=== PATIENT | female | born 1955 | race Caucasian/White ===

== ENCOUNTER 2018-01-17 17:17 | Inpatient (IN) | payer OTHER ==
[2018-01-17] MEDS ORDERED: NS 1,000 ML IV ONE (17:25)
--- NOTE | 2018-01-17 17:30 | EDPHY ---
H & P Time Seen by Provider: 01/17/18 17:21 HPI/ROS: CHIEF COMPLAINT: Shortness of breath HISTORY OF PRESENT ILLNESS: The patient is a 62-year-old obese female no significant past medical history who comes to the emergency department complaining of shortness of breath with exertion. This began this afternoon. She denies cough fever or flu like symptoms. She denies chest pain. She has no history of asthma or pulmonary disease. She has not had any nausea vomiting or diaphoresis. The she denies palpitations. She denies lightheadedness. She is slightly hypoxic on room air at 89%. No recent travel. No smoking. no hormones. REVIEW OF SYSTEMS: Constitutional: denies: chills, fever, recent illness, recent injury EENTM: denies: blurred vision, double vision, nose congestion Respiratory: denies: cough, shortness of breath Cardiac: denies: chest pain, irregular heart rate, lightheadedness, palpitations Gastrointestinal/Abdominal: denies: abdominal pain, diarrhea, nausea, vomiting, blood streaked stools Genitourinary: denies: dysuria, frequency, hematuria, pain Musculoskeletal: denies: joint pain, muscle pain Skin: denies: lesions, rash, jaundice, bruising Neurological: denies: headache, numbness, paresthesia, tingling, dizziness, weakness Hematologic/Lymphatic: denies: blood clots, easy bleeding, easy bruising Immunologic/allergic: denies: HIV/AIDS, transplant EXAM: GENERAL: Well-appearing, well-nourished and in no acute distress. HEAD: Atraumatic, normocephalic. EYES: Pupils equal round and reactive to light, extraocular movements intact, sclera anicteric, conjunctiva are normal. ENT: TMs normal, nares patent, oropharynx clear without exudates. Moist mucous membranes. NECK: Normal range of motion, supple without lymphadenopathy or JVD. LUNGS: Breath sounds clear to auscultation bilaterally and equal. No wheezes rales or rhonchi. HEART: Tachycardic but regular, rhythm without murmurs, rubs or gallops. ABDOMEN: Soft, nontender, normoactive bowel sounds. No guarding, no rebound. No masses appreciated. BACK: No CVA tenderness, no spinal tenderness, step-offs or deformities EXTREMITIES: Normal range of motion, no pitting or edema. No clubbing or cyanosis. NEUROLOGICAL: Cranial nerves II through XII grossly intact. Normal speech, normal gait. 5/5 strength, normal movement in all extremities, normal sensation PSYCH: Normal mood, normal affect. SKIN: Warm, dry, normal turgor, no visible rashes or lesions. Source: Patient Exam Limitations: No limitations - Medical/Surgical History Hx Asthma: No Hx Chronic Respiratory Disease: No Hx Diabetes: No Hx Cardiac Disease: No Hx Renal Disease: No Hx Cirrhosis: No Hx Alcoholism: No Other PMH: Obesity - Family History Significant Family History: Heart disease - Social History Smoking Status: Never smoked Alcohol Use: Sober Drug Use: None Constitutional: Initial Vital Signs Temperature (C) 36.7 C 01/17/18 17:31 Heart Rate 119 H 01/17/18 17:31 Respiratory Rate 16 01/17/18 17:31 Blood Pressure 155/101 H 01/17/18 17:31 O2 Sat (%) 90 L 01/17/18 17:31 O2 Delivery Mode Nasal Cannula O2 (L/minute) 2 Allergies/Adverse Reactions: No Known Allergies Allergy (Unverified 01/17/18 17:30) Home Medications: Medication Instructions Recorded Acetaminophen [Tylenol ES 500 mg 1,000 mg PO HS 01/17/18 (*)] Calcium Carbonate [Tums 500MG (*)] 1,000 mg PO Q2H PRN 01/17/18 Herbals/Supplements -Info Only 1 ea PO DAILY 01/17/18 Ibuprofen [Motrin (*)] 400 mg PO Q6H PRN 01/17/18 Melatonin [Melatonin 3 MG (*)] 3 mg PO HS 01/17/18 Naproxen Sodium [Aleve 220 MG (*)] 440 mg PO DAILY PRN 01/17/18 Medical Decision Making - Diagnostics EKG Interpretation: An EKG obtained and was read and documented in trace view. Please see trace view for full reading and report. Sinus tachycardia 115 Imaging: Discussed imaging studies w/ call center team leader Radiologist ED Course/Re-evaluation: We discussed her large bilateral PEs and right heart strain. I will start heparin drip. I discussed the case with Dr. Goldsmith who will admit. Differential Diagnosis: Partial list of the Differential diagnosis considered include but were not limited to; PE, acute coronary disease and although unlikely based on the history and physical exam, I also considered pneumonia, asthma. Critical Care Time: Critical care time spent by me, Dr. Moraes exclusive with this patient was 35 minutes, exclusive of the PA time exclusive of procedures. The organ system that was at risk was pulmonary and cardiovascular and I gave diagnostics, treatment and admission to prevent worsening of the patient's condition - Data Points Laboratory Results: Laboratory Results 01/17/18 17:30 01/17/18 17:30 Medications Given: Acetaminophen (Tylenol) 1,000 mg PO HS EDDIE Stop: 07/16/18 20:59 Last Admin: 01/17/18 23:39 Dose: Not Given Heparin Sodium (Porcine) (Heparin 50 Units/Ml (Premix)) 500 mls @ 0 mls/hr IV CONT EDDIE; Per Protocol PRN Reason: Protocol Stop: 07/16/18 20:44 Last Admin: 01/18/18 11:27 Dose: 500 mls Sodium Chloride (Ns) 1,000 mls @ 75 mls/hr IV CONT EDDIE Stop: 07/17/18 11:29 Last Admin: 01/18/18 11:27 Dose: 1,000 mls Melatonin (Melatonin) 3 mg PO HS EDDIE Stop: 07/16/18 20:59 Last Admin: 01/17/18 22:32 Dose: 3 mg Oxycodone HCl (Oxycodone Ir) 5 - 10 mg PO Q4 PRN PRN Reason: Pain, Severe Able to Take PO Stop: 01/27/18 20:44 Last Admin: 01/17/18 22:32 Dose: 5 mg Discontinued Medications Heparin Sodium (Porcine) (Heparin Injection) 0 unit IVP EDNOW ONE PRN Reason: Protocol Stop: 01/17/18 19:46 Last Admin: 01/17/18 20:11 Dose: 7,000 units Heparin Sodium (Porcine) (Heparin Injection) 0 unit IVP ONCE ONE PRN Reason: Protocol Stop: 01/17/18 20:46 Last Admin: 01/18/18 07:26 Dose: Not Given Sodium Chloride (Ns) 1,000 mls @ 0 mls/hr IV EDNOW ONE; Wide Open PRN Reason: Protocol Stop: 01/17/18 17:26 Last Admin: 01/17/18 18:08 Dose: 1,000 mls Heparin Sodium (Porcine) (Heparin 50 Units/Ml (Premix)) 500 mls @ 0 mls/hr IV EDNOW ONE; Per Protocol PRN Reason: Protocol Stop: 01/17/18 19:46 Last Admin: 01/17/18 20:12 Dose: 500 mls Point of Care Test Results: Chemistry 01/17/18 18:10 POC Troponin I 0.66 ng/mL H ng/mL (0.00-0.08) Departure - Departure Disposition: [facility] Inpatient Acute Clinical Impression: Pulmonary embolism Qualifiers: Pulmonary embolism type: other Chronicity: acute Acute cor pulmonale presence: without acute cor pulmonale Qualified Code(s): I26.99 - Other pulmonary embolism without acute cor pulmonale Condition: Fair
[2018-01-17 17:35] LABS: PLATELET COUNT 141 10^3/uL (150-400)
[2018-01-17 17:43] LABS: INR 1.02 (0.83-1.16); PROTIME(PATIENT) 13.6 SEC (12.0-15.0)
--- NOTE | 2018-01-17 17:54 | CPEKG ---
Heart Rate: 115 RR Interval: 522 P-R Interval: 164 QRSD Interval: 100 QT Interval: 328 QTC Interval: 454 P [place]: 62 QRS [place]: 49 T Wave [place]: -27 EKG Severity - OTHERWISE NORMAL ECG - EKG Impression: SINUS TACHYCARDIA Electronically Signed By: Lyle Moraes 17-Jan-2018 18:01:07
[2018-01-17] MEDS ORDERED: HEPARIN 10,000 UNIT/10 ML MDV (1,000 UNIT/ML) IVP ONE ×2 (19:45→20:45)
[2018-01-17] MEDS ORDERED: HEPARIN/DEXTROSE 500 ML IV ONE (19:45)
[2018-01-17] MEDS ORDERED: HEPARIN 10,000 UNIT/10 ML MDV (1,000 UNIT/ML) IVP PRN (20:45)
[2018-01-17] MEDS ORDERED: ONDANSETRON 4 MG/2 ML VIAL IVP PRN (20:45)
[2018-01-17] MEDS ORDERED: ACETAMINOPHEN 325 MG TAB PO PRN (20:45)
[2018-01-17] MEDS ORDERED: oxyCODONE IR 5 MG TAB PO PRN (20:45)
[2018-01-17] MEDS ORDERED: PROMETHAZINE HCL 25 MG/ML INJ IVP PRN (20:45)
--- NOTE | 2018-01-17 21:33 | GHP ---
[f rep st] HISTORY AND PHYSICAL DATE OF ADMISSION: 01/17/2018 CHIEF COMPLAINT: Shortness of breath and near syncope. HISTORY OF PRESENT ILLNESS: This is a 62-year-old female, with no significant past medical history, presented to the emergency department today via EMS due to shortness of breath. The patient states that she became more short of breath than usual walking to her bus stop today. She works at [employer]. While at work she walked to the bathroom, where she became quite winded and felt like she was going to pass out. EMS was subsequently called, and she was brought to the emergency department for further evaluation, where she presented with a room air oxygen saturation of 89%. The patient does not have any history of blood clots. She has been more sedentary than usual, which she attributes to long standing right thigh pain that has been ongoing for more than a year. She denies any chest pain. PAST MEDICAL HISTORY: Obesity. Suspect some underlying depression. PAST SURGICAL HISTORY: Laparoscopy for endometriosis. HOME MEDICATIONS: Reviewed. Refer to [place] for details. ALLERGIES: No known drug allergies. SOCIAL HISTORY: The patient is . She denies any alcohol, tobacco, or illicit drug use. FAMILY HISTORY: Reviewed and noncontributory. Negative for blood clots. REVIEW OF SYSTEMS: Comprehensive 10-point review of systems was done and is negative, except for as mentioned in the HPI. PHYSICAL EXAM: VITAL SIGNS: Blood pressure 126/91, pulse of 110, respiratory rate 18, O2 saturation 99% on 2 L. Room air oxygen saturation was 89% on initial presentation. GENERAL: No acute distress. Mood is labile, with crying. EYES: PERRLA. Sclerae anicteric. MOUTH: Moist mucous membranes. NECK: Supple. No lymphadenopathy. CARDIOVASCULAR: Tachycardic. S1, S2. No JVD. No lower extremity edema. PULMONARY: Lungs are clear. No wheezes, rales, or rhonchi. Slightly tachypneic. ABDOMEN: Soft, nontender, nondistended. No guarding or rebound tenderness. Normoactive bowel sounds. EXTREMITIES: No clubbing or cyanosis. NEURO: Cranial nerves 2-12 grossly intact. No focal motor or sensory deficits. SKIN: Clear. No rashes. DIAGNOSTICS: CT angio of the chest was reviewed and was consistent with extensive bilateral pulmonary emboli, with evidence of right-sided heart strain , with ectasia of the ascending aorta. Moderate size hiatal hernia and cholelithiasis. See report for full details. EKG, which I visualized and personally interpreted, shows sinus tachycardia, rate 115 beats per minute. No acute ischemic changes. WBC 7, hemoglobin 13.2, hematocrit 39.9, platelets 141 , D-dimer was greater than 20, INR 1.02. PT and PTT within normal limits. Sodium 140, potassium 3.6, chloride 102, BUN 32, creatinine 1.4, glucose 120, calcium 10.8, phosphorus 4.9, troponin elevated at 0.66. ASSESSMENT AND PLAN: This is a 62-year-old female with no significant past medical history, presenting with: 1. Submassive pulmonary emboli with evidence of right heart strain and elevated troponin. Plan: The patient will be admitted to the step-down unit on a heparin drip. We will cycle her troponins. Currently the patient is hemodynamically stable. I discussed the case with Dr. Forbes who is correctional officer chief for pulmonology who agrees with not giving TPA in the setting of hemodynamic stability. 2. Mild hypercalcemia. Plan: Monitor and repeat in the morning. 3. Elevated creatinine with unknown baseline. 4. Plan: Continue to monitor. 5. Longstanding right leg pain. Plan: The patient should have PT and OT started once her medical condition stabilizes. She may benefit from outpatient physical therapy for treatment of her right thigh pain. 6. Labile mood, concerning for undiagnosed depression. Plan: She should follow up with her primary care provider on an outpatient basis to further discuss the possibility of underlying depression. The patient requests to be full code status. /[id number]/MODL MTDD
[2018-01-17] MEDS: MELATONIN 3 MG TAB PO SCH (22:32)
[2018-01-17] MEDS: ACETAMINOPHEN 500 MG TAB PO SCH (23:39)
[2018-01-18 03:00] LABS: INR 1.15 (0.83-1.16); PROTIME(PATIENT) 14.9 SEC (12.0-15.0)
[2018-01-18 06:14] LABS: PLATELET COUNT 105 10^3/uL (150-400)
--- NOTE | 2018-01-18 10:07 | PDMN ---
Medical Necessity Medical necessity: MCG M-290, Pulmonary Embolism, A-4 days, Pt admitted w SOB and near syncope; found to have extensive, bilat PE w/R heart strain and elevated trop, On IV heparin, requiring ongoing monitoring and treatment
--- NOTE | 2018-01-18 10:55 | ASMTCMCOM ---
CM Note CM Note Notes: Patient admitted for shortness of breath and near syncope. Found to have bilateral PEs. She lives independently with her . Works at [employer]. Therapies have been ordered to evaluate longstanding R leg pain. Case Management will follow. Date Signed: 01/18/2018 10:54 AM Electronically Signed By:Deepali Michel RN
[2018-01-18] MEDS: HEPARIN/DEXTROSE 500 ML IV SCH (11:27)
[2018-01-18] MEDS: NS 1,000 ML IV SCH (11:27)
--- NOTE | 2018-01-18 11:31 | HOSPPROG ---
Hospitalist Progress Note Assessment/Plan: 62 yo female admitted with bilateral Pulmonary embolus in distal main pulmonary artery with right sided strain #bilateral P.E. with right sided strain -VSS, trop decreasing -no indication for tpa -cont Heparin #Acute vs chronic renal injury #Anemia #Thrombocytopenia #Obesity #CP due to bilateral P.E. Plan: check LE US Check TTE monitor Hgb and platelets closely give Heparin drip Cont Heparin drip IVF obtain urine studies Keep SDU for now total critical care time is 35 minutes in a pt with acute P.E. with e/o right sided strain, elevated troponin, on a heparin drip. Subjective: still had CP last night. No CP this morning. No SOB. Reports bilateral leg swelling. she says its chronic. Objective: Vital Signs Temp Pulse Resp BP Pulse Ox 36.4 C 92 14 108/63 97 01/18/18 07:35 01/18/18 07:35 01/18/18 07:35 01/18/18 07:35 01/18/18 07:35 Laboratory Results 01/18/18 05:50 01/18/18 05:50 01/17/18 01/18/18 01/19/18 05:59 05:59 05:59 Intake Total 1133 Output Total 2 Balance 1131 PT 14.9 SEC (12.0-15.0) 01/18/18 02:30 INR 1.15 (0.83-1.16) 01/18/18 02:30 - Physical Exam Constitutional: no apparent distress Eyes: PERRL, EOMI Ears, Nose, Mouth, Throat: moist mucous membranes, hearing normal, ears appear normal Cardiovascular: regular rate and rhythym, edema (trace) Respiratory: clear to auscultation Gastrointestinal: normoactive bowel sounds, soft, non-tender abdomen Skin: warm Musculoskeletal: full muscle strength Neurologic: AAOx3 Psychiatric: interacting appropriately, not anxious, not encephalopathic Lymph, Heme, Immunologic: No petechiae ICD10 Worksheet Patient Problems: Problems Problem Status Onset Pulmonary embolism Acute
--- NOTE | 2018-01-18 12:28 | ECHO ---
[email or web address] [address] [address] Main: [phone] Fax: [email or web address] Echocardiogram Name: AMARI SOLOMON MR#: [id number] Study Date: 01/18/2018 Study Time: 11:22 AM Date of : 1955 Age: 62 year(s) Height: 160 cm (63 in.) Weight: 114.76 kg (253 lb.) BSA: 2.14 m2 Gender: Female Examination: Echo Indication: Bilateral PE Image Quality: Contrast: Requested by: Milo Gilliland BP: 105 mmHg/66 mmHg Heart Rate: Rhythm: Normal sinus rhythm Indication: Bilateral PE Procedure Staff Change Release Manager: Elias Peguero RDCS Reading Physician: Pedrito Schmitt MD Requesting Provider: Conclusions: No pericardial effusion. Preserved left ventricular systolic function with ejection fraction of 68%. Dilated right ventricle with a flattened interventricular septum consistent with right ventricular pressure and/or volume overload. Elevated right ventricular systolic pressure. Moderate tricuspid regurgitation. Tissue Doppler suggests normal left ventricular filling pressures. Measurements: Chambers Valvular Assessment AV/MV Valvular Assessment TV/PV Normal Normal Normal Name Value Range Name Value Range Name Value Range Ao Precious (MM): 2.6 cm (2.2 cm-3.7 AV Vmax: 1.29 m/s (1 m/s-1.7 TR Vmax: 3.17 mm/s ( - ) cm) m/s) TR PGmax: 40 mmHg ( - ) IVSd (2D): 0.9 cm (0.6 cm-1.1 AV maxP mmHg ( - ) syst. PAP: 50 mmHg ( - ) cm) LVOT Vmax: 0.85 m/s (0.7 m/s-1.1 PV Vmax: 0.84 m/s (0.6 m/s-0.9 LVDd (2D): 3.8 cm (3.9 cm-5.3 m/s) m/s) cm) MV E Vmax: 0.50 m/s ( - ) PV PGmax: 3 mmHg ( - ) LVDs (2D): 2.4 cm (2.1 cm-4 MV A Vmax: 0.88 m/s ( - ) cm) MV E/A: 0.57 ( - ) LVPWd (2D): 1.0 cm ( - ) LVEF (2D): 68 (>=54 %) RVDd(2D): 4.5 cm (1.9 cm-3.8 cmmm) Continued Measurements: Chambers Valvular Assessment AV/MV Valvular Assessment TV/PV Name Value Name Value Name Value LADs Lon.5 cm MV E' Septal: 0.10 m/s CVP (est.): 10 mmHg LA Area: 13.0 cm2 MV E/E' Septal: 5.20 MV E/E' Lateral: 7.00 Patient: AMARI SOLOMON Study Date: 01/18/2018 Page 1 of 2 11:22 AM Findings: Left Ventricle: Normal size left ventricle. No LV hypertrophy. Normal global systolic LV function. EF is 68 %. No regional wall motion abnormality. Diastolic dysfunction is present. . Right Ventricle: Mildly to moderately dilated right ventricle. Mildly reduced RV function. Flattened interventricular septum consistent with right ventricular pressure and/or volume overload free wall. Left Atrium: The left atrium is normal in size. Right Atrium: The right atrium is normal in size. Mitral Valve: The mitral valve is normal in appearance and function. Mild mitral valve leaflet calcification is present. There is no mitral valve regurgitation. Aortic Valve: The aortic valve is tri-leaflet. The aortic valve is normal in appearance and function. Tricuspid Valve: Moderate tricuspid regurgitation is present. The pulmonary artery pressure is moderately increased. Pulmonic Valve: The pulmonic valve is normal in appearance and function. Aorta: The aorta is normal. Pericardium: No pericardial effusion. (No Signature Object) Patient: AMARI SOLOMON Study Date: 01/18/2018 Page 2 of 2 11:22 AM [id number]
--- NOTE | 2018-01-18 17:34 | GCON ---
[f rep st] CONSULTATION PULMONARY CRITICAL CARE CONSULTATION DATE OF CONSULTATION: 01/18/2018 REASON FOR CONSULTATION: Pulmonary embolism. HISTORY OF PRESENT ILLNESS: The patient is a pleasant 62-year-old who presented to the emergency dep artment late yesterday with shortness of breath and fatigue. She felt that she was going to pass out . She was at work. EMS was called and she was brought to the emergency department. CT angiogram wa s done and showed bilateral pulmonary embolic disease distally. There is no saddle embolism or clot in the right or left main pulmonary arteries. Right heart strain cannot be excluded. A hiatal herni a and cholelithiasis were noted. She was started on heparin and admitted to the intensive care unit. She was hypertensive on admission to the ED with a saturation of 90%. Heart rate was 117. She was afebrile. Following admission to the intensive care unit, she has remained stable overnight. She is doing well . She denies chest pain or hemoptysis. Vital signs have been stable. She has been on 3 L of oxygen . EKG shows a normal sinus for rhythm. Her only risk factor for pulmonary embolic disease is inactivity. She sits at a desk at [employer] and will remain stationary there sitting for as long as 4 hours. PAST MEDICAL HISTORY: Remarkable for obesity and possibly mild depression. SOCIAL HISTORY: The patient is , with 1 son. Alcohol and tobacco are negative. She works at [employer]. FAMILY HISTORY: Negative for thromboembolic disease. REVIEW OF SYSTEMS: A 10-point review of systems is negative. She has had no lower extremity edema, pain, dilated veins, etc. She has had no recent travel or trauma. There is no history of heart dise ase. She is quite inactive. PHYSICAL EXAMINATION: GENERAL: Reveals a pleasant woman who is sitting up in a chair. She is in no distress. VITAL SIGNS: Blood pressure is approximately 125/90, heart rate 105, with sinus tachycar viktoria on the monitor. She is on 2 L of oxygen with saturations of 99%. Respiratory rate is 18. She i s afebrile. She is in no distress. NECK: Unremarkable for lymphadenopathy or thyromegaly. There i s no obvious jugular venous distention, but the neck is large. CHEST: Clear bilaterally. There are no rales, no rub. Breath sounds are somewhat diminished, secondary to body habitus. HEART: Tachyc ardic. Heart tones are distant. A gallop cannot be excluded. P2 possibly is elevated. ABDOMEN: O bese, soft, and nontender. Bowel sounds are present. EXTREMITIES: Unremarkable for significant maynor ma. There is trace plus bilaterally. There are no obvious cords. The right and left calves are equ al in size. There is no tenderness to palpation. NEUROLOGIC: Examination is intact. LABORATORY/IMAGING: CT scan of the chest is as outlined above, positive for bilateral pulmonary embo lic disease. White blood cell count is 5100, hematocrit 33.8, down from approximately 40 on admission, platelets a re 105,000. The latest unfractionated heparin was 0.94. D-dimer was elevated on admission at greate r than 20. PT and PTT were within normal limits. Chemistries are within normal limits with the exce ption of a BUN of 26 and creatinine of 1.2. Troponin was elevated at 0.4 this morning. ASSESSMENT: Pulmonary embolism. This is bilateral and significant; however, she was not hypotensive or significantly hypoxemic. She is doing well. Pulmonary hypertension is suspected. A cardiac ech o will be obtained. Bilateral venous Doppler ultrasounds will be ordered looking for a possible lowe r extremity source. Heparin will be continued for now. She will be kept bedrest to the bathroom unt il we know about possible deep venous thrombosis. She will be kept in the intensive care unit All the above was discussed with the patient, hospitalist, Nursing. Further plans and recommendations will be made based on her progress over the next 12 to 24 hours. /[id number]/MODL
[2018-01-18] MEDS: MELATONIN 3 MG TAB PO SCH (20:10)
[2018-01-19] MEDS: NS 1,000 ML IV SCH (00:32)
[2018-01-19] MEDS: ACETAMINOPHEN 500 MG TAB PO SCH ×2 (00:33→22:34)
[2018-01-19 06:40] LABS: PLATELET COUNT 85 10^3/uL (150-400)
--- NOTE | 2018-01-19 11:19 | PDINTPN ---
Demand Planner Progress Note Assessment/Plan: Assessment: DVT right lower extremity associated with moderate volume pulmonary embolism bilaterally. On a heparin drip. Will start Coumadin today. With extensive right lower extremity DVT despite the relative lack of symptoms I would favor keeping her primarily at bed rest with activity limited to chair/bathroom for a total of 72 hr from initiation of anticoagulation. PE: Associated with moderate pulmonary hypertension. Clinically doing well. Blood pressure an oxygen requirements both are fine. History of snoring. She could have underlying sleep apnea. Outpatient evaluation will be needed. Overnight oximetry done here prior to discharge may indicate need for oxygen at night. Obesity. Plan: Continue heparin drip. Start Coumadin today. Follow INR. [facility] and consider discharge on Tuesday? Overnight oximetry study in the hospital on room air tomorrow night/Tuesday. Limit activity to bed, chair comma bathroom for now. Subjective: Doing well, feels pretty well. Denies shortness of breath. No cough, no chest pain, no hemoptysis. She has some right thigh pain when she is up. This is been present for years, perhaps worse in the last 2-3 weeks? Objective: Vital Signs Temp Pulse Resp BP Pulse Ox 36.8 C 77 12 125/60 H 100 01/19/18 08:00 01/19/18 08:00 01/19/18 08:00 01/19/18 08:00 01/19/18 08:00 Laboratory Results 01/19/18 06:15 01/19/18 06:15 01/18/18 01/19/18 01/20/18 05:59 05:59 05:59 Intake Total 1133 2497 Output Total 2 400 Balance 1131 2097 PT 14.9 SEC (12.0-15.0) 01/18/18 02:30 INR 1.15 (0.83-1.16) 01/18/18 02:30 Moderate pulmonary hypertension present on echo. Dilated RV secondary to pressure/volume overload. Right lower extremity venous Doppler ultrasound positive for clot. Femoral, saphenous, etc veins involved Physical Exam - Physical Exam General Appearance: alert, no apparent distress, obese EENT: PERRL/EOMI, other (On room air currently. With 2 L saturations were 100%) Neck: normal inspection (No obvious JVD. Large neck.), No thyromegaly Respiratory: lungs clear, decreased breath sounds (Secondary to body habitus), No rales, No rhonchi, No pleural rub Cardiac/Chest: regular rate, rhythm (Distant heart tones.) Abdomen: normal bowel sounds, non-tender, soft (Obese) Extremities: pedal edema (Trace + pedal edema bilaterally. No obvious cords or tenderness in the calf on the right. Calf size on the right is the same as the left.) Neuro/Psych: no motor/sensory deficits, No cognition abnormalities ICD10 Worksheet Patient Problems: Problems Problem Status Onset Pulmonary embolism Acute
--- NOTE | 2018-01-19 11:53 | HOSPPROG ---
Hospitalist Progress Note Assessment/Plan: 62 yo female admitted with bilateral Pulmonary embolus with right sided strain #bilateral P.E. with right sided strain, right proximal LE DVT -VSS, trop decreasing -no indication for tpa -Start Warfarin today -consider changing Heparin to Lovenox tomorrow per pulms reccs #Acute vs chronic renal injury, resolved with IVF #Anemia, decreasing, monitoring #Thrombocytopenia, decreasing, monitoring #Obesity #CP due to bilateral P.E., resolved Plan: -cont Heparin -Start Coumadin -monitor platelets and Hgb -PT/OT -Stop IVF -transfer out of the SDU Subjective: no resp issues. no sob. no cp. bp is stable. Hgb and plateles decreasing. very emotional Objective: Vital Signs Temp Pulse Resp BP Pulse Ox 36.8 C 77 12 125/60 H 100 01/19/18 08:00 01/19/18 08:00 01/19/18 08:00 01/19/18 08:00 01/19/18 08:00 Laboratory Results 01/19/18 06:15 01/19/18 06:15 01/18/18 01/19/18 01/20/18 05:59 05:59 05:59 Intake Total 1133 2497 Output Total 2 400 Balance 1131 2097 PT 14.9 SEC (12.0-15.0) 01/18/18 02:30 INR 1.15 (0.83-1.16) 01/18/18 02:30 - Physical Exam Constitutional: no apparent distress Eyes: PERRL, EOMI Ears, Nose, Mouth, Throat: moist mucous membranes, hearing normal Cardiovascular: regular rate and rhythym, edema (trace bilateral) Respiratory: no respiratory distress Gastrointestinal: normoactive bowel sounds, soft, non-tender abdomen Skin: warm Neurologic: AAOx3 Psychiatric: interacting appropriately, not anxious, not encephalopathic Lymph, Heme, Immunologic: No petechiae ICD10 Worksheet Patient Problems: Problems Problem Status Onset Pulmonary embolism Acute
[2018-01-19] MEDS: WARFARIN SODIUM 7.5 MG TAB PO SCH (15:33)
[2018-01-19] MEDS: MELATONIN 3 MG TAB PO SCH (17:37)
[2018-01-20] MEDS: CALCIUM CARBONATE 500 MG CHEWABLE TAB PO PRN (03:35)
[2018-01-20] MEDS: HEPARIN/DEXTROSE 500 ML IV SCH (03:36)
[2018-01-20] MEDS ORDERED: FAMOTIDINE 20 MG TAB PO PRN (04:46)
[2018-01-20 05:00] LABS: PLATELET COUNT 102 10^3/uL (150-400)
[2018-01-20 05:10] LABS: INR 1.03 (0.83-1.16); PROTIME(PATIENT) 13.7 SEC (12.0-15.0)
--- NOTE | 2018-01-20 16:30 | HOSPPROG ---
Hospitalist Progress Note Assessment/Plan: 62 yo female admitted with bilateral Pulmonary embolus with right sided strain #bilateral P.E. with right sided strain, right proximal LE DVT -VSS, trop decreasing -no indication for tpa -cont Warfarin -Change Heparin to Lovenox #Acute vs chronic renal injury, resolved with IVF #Anemia, stable, monitoring #Thrombocytopenia, stable, monitoring #Obesity #CP due to bilateral P.E., resolved Plan: -start Lovenox -cont oumadin -monitor platelets and Hgb -PT/OT -Hopefully d/c soon Subjective: no cp or sob. no n/v Objective: Vital Signs Temp Pulse Resp BP Pulse Ox 36.8 C 80 16 102/75 97 01/20/18 15:42 01/20/18 15:42 01/20/18 15:42 01/20/18 15:42 01/20/18 15:42 Laboratory Results 01/20/18 04:50 01/19/18 06:15 01/19/18 01/20/18 01/21/18 05:59 05:59 05:59 Intake Total 2497 1760 Output Total 400 Balance 2097 1760 PT 13.7 SEC (12.0-15.0) 01/20/18 04:50 INR 1.03 (0.83-1.16) 01/20/18 04:50 - Physical Exam Constitutional: no apparent distress Eyes: PERRL, EOMI Ears, Nose, Mouth, Throat: moist mucous membranes, hearing normal Cardiovascular: regular rate and rhythym, edema Respiratory: no respiratory distress, no rales or rhonchi, clear to auscultation Gastrointestinal: normoactive bowel sounds Skin: warm Neurologic: AAOx3 Psychiatric: interacting appropriately, not anxious, not encephalopathic Lymph, Heme, Immunologic: No petechiae ICD10 Worksheet Patient Problems: Problems Problem Status Onset Pulmonary embolism Acute
[2018-01-20] MEDS: WARFARIN SODIUM 7.5 MG TAB PO SCH (16:36)
[2018-01-20] MEDS: ENOXAPARIN 120 MG/0.8 ML SYR SC SCH (18:21)
[2018-01-20] MEDS: ACETAMINOPHEN 500 MG TAB PO SCH (20:37)
[2018-01-20] MEDS: MELATONIN 3 MG TAB PO SCH (20:37)
[2018-01-21] MEDS ORDERED: diphenhydrAMINE 25 MG CAP PO PRN (03:18)
[2018-01-21 05:17] LABS: PLATELET COUNT 113 10^3/uL (150-400)
[2018-01-21 05:24] LABS: INR 1.03 (0.83-1.16); PROTIME(PATIENT) 13.7 SEC (12.0-15.0)
[2018-01-21] MEDS: ENOXAPARIN 120 MG/0.8 ML SYR SC SCH ×2 (05:52→17:09)
--- NOTE | 2018-01-21 13:17 | PDDCSUM ---
Discharge Summary Discharge Summary: This is a 62 yo female admitted with bilateral Pulmonary embolus with right sided strain. She was admitted into the SDU. She was started on Heparin. She was not hemodynamically unstable. He did not have hypotension. Thrombolytics were not used. She was eventually transitioned to Lovenox and Warfarin. Her INR is not therapeutic. She will cont with Coumadin and a Lovenox bridge. She will have her INR obtained on Tuesday with results to Dr. Milo Gilliland who will manage her follow up. At f/u would repeat a CBC Please see below for details per problem list. DDX: #bilateral P.E. with right sided strain, #RLE DVT, proxima #Acute vs chronic renal injury, resolved with IVF #Anemia, stable, monitoring #Thrombocytopenia, stable, monitoring #Obesity #CP due to bilateral P.E., resolved Exam: VSS, RA NAD AAOX3 RRR CTA B S/NT/ND NO LE EDEMA MEDS: SEE MED REC TOTAL TIME SPENT ON D/C IS 35 MINS
--- NOTE | 2018-01-21 15:20 | ASMTCMCOM ---
CM Note CM Note Notes: Spoke w/, pt has no insurance and no current PCP. She needs coumadin and Geovanna, sent RXs to her [facility] pharmacy, for 4 Lovenox syringes it would be $77.56 (they have a discount card for her), a 30 day supply of Coumadin will be about $13.74. D/w , rx written for 1 weeks worth of Lovenox (14 syringes), understands pt may not be able to get all at once but would at least like her to get six. CM discussed discharge plan with pt and on speaker phone, they confirm they can get afford RXs and will pick them up tonight. She will have an INR drawn on Tuesday at [facility] and follow up with Dr Milo Moran office for instructions. I also encourgaged pt to get established with a PCP at [facility] in [place], that now that she is on Coumadin it will be important to have a doctor. Pt stated she will call Tuesday to schedule appt. Patient will give herself evening dose before she leaves tonight, will pick her up at 5pm. DC Plan: Independent Date Signed: 01/21/2018 03:20 PM Electronically Signed By:Fabiana Maier RN
--- NOTE | 2018-01-21 15:25 | ASMTLACE ---
ISHE Length of stay for Answers: 4-6 days current admission Acuity / Level of Answers: Yes Care: Did the patient have an inpatient admission? # of Emergency department Answers: 1-2 visits in the last 6 months Social determinants Answers: Mental health diagnosis (anxiety, depression, pers onality disorders, etc.) Score: 11 Date Signed: 01/21/2018 03:25 PM Electronically Signed By:Fabiana Maier RN
[2018-01-21 15:44] VITALS: BP 152/57
[2018-01-21] MEDS: WARFARIN SODIUM 7.5 MG TAB PO SCH (17:09)
[2018-01-21] MEDS: CALCIUM CARBONATE 500 MG CHEWABLE TAB PO PRN (17:09)
--- NOTE | 2018-01-21 17:09 | SOAPPROG ---
SOAP Progress Note Assessment/Plan: Assessment: DVT right lower extremity associated with moderate volume pulmonary embolism bilaterally. On enoxaparin bridge and Coumadin. For discharge later today. Next INR on Tuesday. PE: Associated with moderate pulmonary hypertension. Clinically doing well. Blood pressure and oxygen requirements both are fine. She will need a follow- up echo at 3 months History of snoring. She could have underlying sleep apnea. Outpatient evaluation will be needed. Obesity. Plan: For discharge home today on Lovenox and Coumadin. INR in 2 days, on Tuesday. Results will be called to the office. She will call the office for further instructions regarding continuing or not the enoxaparin, dose of Coumadin, and next INR. At some point I will transition her INR checks to the coagulation clinic. For follow-up in the office in 2-4 weeks. Subjective: Feels better. Denies shortness of breath or chest pain. Dyspnea on exertion hard to evaluate as she is fairly inactive. Her chronic right thigh pain seems to be better. Objective: Vital Signs Temp Pulse Resp BP Pulse Ox 37.0 C 78 16 152/57 H 97 01/21/18 15:40 01/21/18 15:40 01/21/18 15:40 01/21/18 15:40 01/21/18 15:40 Laboratory Results 01/21/18 04:48 01/19/18 06:15 01/20/18 01/21/18 01/22/18 05:59 05:59 05:59 Intake Total 1760 350 Balance 1760 350 PT 13.7 SEC (12.0-15.0) 01/21/18 04:48 INR 1.03 (0.83-1.16) 01/21/18 04:48 Physical Exam - Physical Exam General Appearance: alert, no apparent distress, obese EENT: PERRL/EOMI, other (On room air) Neck: normal inspection (Large neck) Respiratory: lungs clear, decreased breath sounds (Secondary to body habitus), No rales, No rhonchi, No pleural rub Cardiac/Chest: regular rate, rhythm (Distant heart tones) Abdomen: normal bowel sounds, non-tender, soft (Significantly overweight) Skin: normal color, warm/dry Extremities: pedal edema, swelling (Large legs bilaterally. Size about equal right verses left) Neuro/Psych: no motor/sensory deficits (Does walk with a limp related to her right leg), No cognition abnormalities ICD10 Worksheet Patient Problems: Problems Problem Status Onset Pulmonary embolism Acute
== END 2018-01-21 17:43 | disposition home or self-care (01) | DRG 176 ==
LOC: OBSVTOIN 20:44 → F2N 21:52 → F3E 01-19 20:32
PROVIDERS: ADMIT Family Medicine; ATTEND Family Medicine
DX: I26.99 Other pulmonary embolism without acute cor pulmonale (principal); I82.411 Acute embolism and thrombosis of right femoral vein; I27.20 Pulmonary hypertension, unspecified; N17.9 Acute kidney failure, unspecified; E66.9 Obesity, unspecified; Z68.41 Body mass index [BMI] 40.0-44.9, adult; K44.9 Diaphragmatic hernia without obstruction or gangrene; K80.20 Calculus of gallbladder without cholecystitis without obstruction; F32.9 Major depressive disorder, single episode, unspecified; E83.52 Hypercalcemia; D64.9 Anemia, unspecified; D69.6 Thrombocytopenia, unspecified
CPT/HCPCS: 84484-PO; 85520-90; 96365; 97110-GP; 97116-GP; 97161-GP; 97165-GO; 97530-GO; 97530-GP; 97535-GO; J1644; J1650